=== PATIENT | male | born 1970 | race Two or more races ===

== ENCOUNTER 2022-03-23 10:20 | Outpatient (CLI) | payer MEDICARE, MEDICAID | END 2022-03-23 23:59 | disposition home or self-care (01) | LOC: MSC 10:20 | PROVIDERS: ATTEND Anesthesiology | DX: G89.4 Chronic pain syndrome (principal); M54.16 Radiculopathy, lumbar region; M62.830 Muscle spasm of back; F11.20 Opioid dependence, uncomplicated; R20.2 Paresthesia of skin ==

== ENCOUNTER → 2022-04-27 | Outpatient (CLI) | payer MEDICARE, MEDICAID | END | disposition home or self-care (01) | LOC: MSC 11:30 | PROVIDERS: ATTEND Anesthesiology | DX: M54.16 Radiculopathy, lumbar region (principal); M62.830 Muscle spasm of back; G89.4 Chronic pain syndrome; F11.20 Opioid dependence, uncomplicated ==

== ENCOUNTER 2022-04-30 12:33 | Outpatient (CLI) | payer MEDICARE, MEDICAID | END 2022-04-30 23:59 | disposition home or self-care (01) | LOC: MRI 12:33 | PROVIDERS: ATTEND Anesthesiology | DX: M47.816 Spondylosis without myelopathy or radiculopathy, lumbar region (principal); M48.07 Spinal stenosis, lumbosacral region; M48.8X7 Other specified spondylopathies, lumbosacral region; M51.26 Other intervertebral disc displacement, lumbar region; M43.16 Spondylolisthesis, lumbar region; M51.46 Schmorl's nodes, lumbar region | CPT/HCPCS: 72148-TC ==

== ENCOUNTER 2022-06-01 11:00 | Outpatient (CLI) | payer MEDICARE, MEDICAID | END 2022-06-01 23:59 | disposition home or self-care (01) | LOC: MSC 11:00 | PROVIDERS: ATTEND Anesthesiology | DX: G89.4 Chronic pain syndrome (principal); M54.16 Radiculopathy, lumbar region; M62.830 Muscle spasm of back; F11.20 Opioid dependence, uncomplicated; Z76.0 Encounter for issue of repeat prescription ==

== ENCOUNTER → 2022-06-15 | Outpatient (CLI) | payer MEDICARE, OTHER | END | disposition home or self-care (01) | LOC: MSC 11:00 | PROVIDERS: ATTEND Anesthesiology | DX: G89.4 Chronic pain syndrome (principal); M54.16 Radiculopathy, lumbar region; M62.830 Muscle spasm of back; F11.20 Opioid dependence, uncomplicated ==

== ENCOUNTER → 2022-07-06 | Outpatient (CLI) | payer MEDICARE, OTHER | END | disposition home or self-care (01) | LOC: MSC 12:00 | PROVIDERS: ATTEND Anesthesiology | DX: G89.4 Chronic pain syndrome (principal); F11.20 Opioid dependence, uncomplicated; M54.16 Radiculopathy, lumbar region; M62.830 Muscle spasm of back; Z76.0 Encounter for issue of repeat prescription ==

== ENCOUNTER 2022-08-10 10:45 | Outpatient (CLI) | payer MEDICARE, OTHER | END 2022-08-10 23:59 | disposition home or self-care (01) | LOC: MSC 10:45 | PROVIDERS: ATTEND Anesthesiology | DX: G89.4 Chronic pain syndrome (principal); M54.16 Radiculopathy, lumbar region; M62.830 Muscle spasm of back; F11.20 Opioid dependence, uncomplicated; Z76.0 Encounter for issue of repeat prescription ==

== ENCOUNTER 2022-09-07 10:47 | Outpatient (CLI) | payer MEDICARE, OTHER | END 2022-09-07 23:59 | disposition home or self-care (01) | LOC: MSC 10:47 | PROVIDERS: ATTEND Anesthesiology | DX: G89.4 Chronic pain syndrome (principal); M54.16 Radiculopathy, lumbar region; M62.830 Muscle spasm of back; F11.20 Opioid dependence, uncomplicated ==

== ENCOUNTER 2022-10-12 09:30 | Outpatient (CLI) | payer MEDICARE, OTHER | END 2022-10-12 23:59 | disposition home or self-care (01) | LOC: MSC 09:30 | PROVIDERS: ATTEND Anesthesiology | DX: G89.4 Chronic pain syndrome (principal); M54.16 Radiculopathy, lumbar region; M62.830 Muscle spasm of back; F11.20 Opioid dependence, uncomplicated ==

== ENCOUNTER 2022-11-16 10:13 | Outpatient (CLI) | payer MEDICARE, OTHER | END 2022-11-16 23:59 | disposition home or self-care (01) | LOC: MSC 10:13 | PROVIDERS: ATTEND Anesthesiology | DX: G89.4 Chronic pain syndrome (principal); M54.16 Radiculopathy, lumbar region; M62.830 Muscle spasm of back; F11.20 Opioid dependence, uncomplicated ==

== ENCOUNTER 2022-12-14 10:48 | Outpatient (CLI) | payer MEDICARE, OTHER | END 2022-12-14 23:59 | disposition home or self-care (01) | LOC: MSC 10:48 | PROVIDERS: ATTEND Anesthesiology | DX: G89.4 Chronic pain syndrome (principal); M54.16 Radiculopathy, lumbar region; M62.830 Muscle spasm of back; F11.20 Opioid dependence, uncomplicated ==

== ENCOUNTER 2023-01-04 10:52 | Outpatient (CLI) | payer MEDICARE, OTHER | END 2023-01-04 23:59 | disposition home or self-care (01) | LOC: MSC 10:52 | PROVIDERS: ATTEND Anesthesiology | DX: G89.4 Chronic pain syndrome (principal); M54.16 Radiculopathy, lumbar region; M62.830 Muscle spasm of back; F11.20 Opioid dependence, uncomplicated ==

== ENCOUNTER 2023-02-01 10:42 | Outpatient (CLI) | payer MEDICARE, OTHER | END 2023-02-01 23:59 | disposition home or self-care (01) | LOC: MSC 10:42 | PROVIDERS: ATTEND Anesthesiology | DX: G89.4 Chronic pain syndrome (principal); M54.16 Radiculopathy, lumbar region; M62.830 Muscle spasm of back; F11.20 Opioid dependence, uncomplicated ==

== ENCOUNTER 2023-03-01 11:41 | Outpatient (CLI) | payer MEDICARE, OTHER | END 2023-03-01 23:59 | disposition home or self-care (01) | LOC: MSC 11:41 | PROVIDERS: ATTEND Anesthesiology | DX: G89.4 Chronic pain syndrome (principal); M54.16 Radiculopathy, lumbar region; M62.830 Muscle spasm of back; F11.20 Opioid dependence, uncomplicated ==

== ENCOUNTER 2023-06-07 10:45 | Outpatient (CLI) | payer MEDICARE, OTHER | END 2023-06-07 23:59 | disposition home or self-care (01) | LOC: MSC 10:45 | PROVIDERS: ATTEND Anesthesiology | DX: G89.4 Chronic pain syndrome (principal); M54.16 Radiculopathy, lumbar region; M62.830 Muscle spasm of back; M79.606 Pain in leg, unspecified; F11.20 Opioid dependence, uncomplicated ==